=== PATIENT | female | born 1990 | race Hispanic/Latino ===

== ENCOUNTER 2017-04-23 21:00 | Inpatient (IN) | payer OTHER ==
[~2017-04-23 21:00] MED LIST: Lidocaine 2% MPF 10 ML AMP (For Epidural Use) ONE; ePHEDrine/0.9% NaCl/PF SYRINGE 50 mg/10 ml ONE
[2017-04-23] MEDS ORDERED: Misoprostol 200 MCG TAB PR PRN (22:04)
[2017-04-23] MEDS ORDERED: Acetaminophen 500 MG TAB PO PRN (22:04)
[2017-04-23] MEDS ORDERED: LR 500 ML/Oxytocin 10 units 500 ML IV SCH (22:04)
[2017-04-23] MEDS ORDERED: Carboprost 250 MCG/ML AMP IM PRN (22:04)
[2017-04-23] MEDS ORDERED: Zolpidem Tartrate 5 MG TAB PO PRN (22:04)
[2017-04-23] MEDS ORDERED: Lidocaine 1% (PF) 30 ML VIAL SC PRN (22:04)
[2017-04-23] MEDS ORDERED: Methylergonovine 0.2 MG/ML VIAL IM PRN (22:04)
[2017-04-23] MEDS ORDERED: HYDROcodone/Acetaminophen 5/325 mg Tablet PO PRN (22:04)
[2017-04-23] MEDS ORDERED: Diphenoxylate HCl/Atropine Tablet PO PRN (22:04)
[2017-04-23] MEDS ORDERED: Ondansetron HCl/PF 4 MG/2 ML Vial IVP PRN (22:04)
[2017-04-23] MEDS ORDERED: Ibuprofen 800 MG TAB PO PRN (22:04)
[2017-04-23] MEDS ORDERED: Promethazine HCl 25 MG/ML VIAL IM PRN (22:04)
[2017-04-23 22:20] VITALS: BMI 39.4
[2017-04-23] MEDS ORDERED: Penicillin G Potassium 5 MILL.UNITS in Sodium Chloride 0.9% 100 ML IVPB SCH (22:30)
[2017-04-23] MEDS: Lactated Ringer's 1,000 ML IV SCH (22:55)
[2017-04-23] MEDS: Misoprostol 100 MCG TAB VAG SCH (23:02)
[2017-04-23 23:35] LABS: Hemoglobin 14.3 g/dL (12.0-16.0); Mean Corpuscular HGB CONC 34.5 g/dL (32.0-36.0); Mean Corpuscular Volume 86.8 fl (81.0-99.0); Mean Platelet Volume 7.2 fL (7.4-10.4); Platelet Count 239 thou/uL (130-400); RBC Distribution Width 13.6 % (11.5-14.5); Red Blood Cell (RBC) Count 4.77 mill/uL (4.20-5.40); White Blood Cell (WBC) Count 8.8 thou/uL (4.8-10.8)
[2017-04-24 00:12] LABS: Syphilis Antibody Nonreactive (Nonreactive); Syphilis Antibody Index 0.04 S/CO (<1.00 Non-Reactive)
[2017-04-24 02:12] LABS: HBSAg Index 0.25 S/CO (0-0.99); Hep B Surf Ag Non-Reactive S/CO (NonReactive)
[2017-04-24 02:33] LABS: HIV (1/2) Antibody/Antigen Non-Reactive (NonReactive)
[2017-04-24] MEDS: Lactated Ringer's 1,000 ML IV SCH ×2 (03:57→07:42)
[2017-04-24] MEDS: Misoprostol 100 MCG TAB VAG SCH ×4 (03:57→15:11)
[2017-04-24] MEDS ORDERED: Bupivacaine 20 ML, Fentanyl 400 MCG in Sodium Chloride 0.9% 72 ML EPIDURAL SCH (07:00)
--- NOTE | 2017-04-24 08:14 | PDOC.LDHP ---
Labor and Delivery H&P Chief complaint: scheduled induction HPI: 26yo at 40w3d for postdate IOL. s/p 2 doses cytotec overnight, Getting 2nd dose PCN now. Current gestational age (weeks): 40 Due date: 04/21/17 Dating criteria: last menstrual period Grav: 2 Para: 1 Current complications: none Abnormal US findings: No Past Medical History: denies Current medications: pre- vitamins Previous surgical history: none Allergies/Adverse Reactions: Allergies Allergy/AdvReac Type Severity Reaction Status Date / Time No Known Drug Allergies Allergy Verified 12/21/13 22:17 Social history: none - Physical Exam Vital signs reviewed and normal: yes General: NAD Heart: RRR Lungs: CTAB Abdomen: gravid Extremeties: no edema FHT: category 1 [place] contractions every: q2min - Vaginal Exam cm dilated: 6 Effacement: 90% Station: -1 - OB Labs RH: positive Antibody Screen: negative HIV: negative RPR: negative HEPSAg: negative 1 hour GCT: negative GBS: positive Rubella: immune - Assessment L&D Assessment: medically indicated induction - Plan Plan: admit to L&D, labor augmentation if indicated, informed consent obtained, anesthesia consult for pain management -: await AROM until 2nd dose PCN in for several hours. s/p epidural, FHT Cat 1.
[2017-04-24] MEDS: Penicillin G 2.5 MILL.units 2.5 MILL.UNITS in Premix Bag 1 BAG IVPB SCH ×4 (08:35→17:06)
[2017-04-24] MEDS ORDERED: Promethazine HCl 25 MG/ML VIAL IM PRN (08:58)
[2017-04-24] MEDS ORDERED: Eucerin (Mineral Oil/Petrolatum,White) 30 gm Jar TOP PRN (08:58)
[2017-04-24] MEDS ORDERED: diphenhydrAMINE 50 MG/ML VIAL IVP PRN (08:58)
[2017-04-24] MEDS ORDERED: Acetaminophen 325 MG TAB PO PRN (08:58)
[2017-04-24] MEDS ORDERED: Lactated Ringer's 500 ML IV PRN (08:58)
[2017-04-24] MEDS ORDERED: Ondansetron HCl/PF 4 MG/2 ML Vial IVP PRN ×2 (08:58→16:04)
[2017-04-24] MEDS ORDERED: ePHEDrine/0.9% NaCl/PF SYRINGE 50 mg/10 ml SLOW IVP PRN (08:58)
[2017-04-24] MEDS ORDERED: Naloxone HCl 0.4 mg/ml Vial IVP PRN ×2 (08:58)
[2017-04-24] MEDS ORDERED: Communication Order-Pharmacy FS SCH (09:00)
[2017-04-24] MEDS ORDERED: Fentanyl 4mcg/Marcaine 0.1% Cassette 100 ML EPIDURAL SCH (09:00)
[2017-04-24] MEDS: LR / Pitocin 40 units/1000 ml 1,000 ML IV PRN ×2 (11:58→15:11)
[2017-04-24 12:17] LABS: Actual Bicarbonate (HCO3a) 23.3 mEq/L (22-26); Analyzer IN Cardio OR; Base Excess (BEa) -4.1 mEq/L (0 (+/-) 2.5)
--- NOTE | 2017-04-24 13:05 | PDOC.OPDEL ---
OB Operative/Delivery Note Delivery Dr/Surgeon: Percy Assist: n/a Pre-Delivery Diagnosis: medically indicated induction Procedure/Post Delivery Dx: spontaneous vaginal delivery Weeks gestation: 40 Anesthesia: epidural - Findings A Sex: female Weight: 7 lb 14 oz - 1 min: 8 - 5 min: 9 - Additional Findings/Plan Placenta delivered: spontaneous Repaired Obstetrical Laceration: none Estimated blood loss: 400 Compilations/Other Findings: NC x 2 reduced at perineum Post delivery plan: routine recovery
[2017-04-24] MEDS ORDERED: Benzocaine/Menthol 20-0.5% 60 ML CAN TOP PRN (16:04)
[2017-04-24] MEDS ORDERED: HYDROcodone/Acetaminophen 5/325 mg Tablet PO PRN ×2 (16:04)
[2017-04-24] MEDS ORDERED: Preparation H Ointment 28 GM TUBE PR PRN (16:04)
[2017-04-24] MEDS ORDERED: Bisacodyl 10 MG SUPP PR PRN (16:04)
[2017-04-24] MEDS ORDERED: Milk Of Magnesia 30 ML UDCUP PO PRN (16:04)
[2017-04-24] MEDS ORDERED: Adacel (T-DAP) 0.5 ML VIAL IM ONE (16:04)
[2017-04-24] MEDS ORDERED: LR / Pitocin 40 units/1000 ml 1,000 ML IV SCH (16:04)
[2017-04-24] MEDS ORDERED: Lanolin Ointment 7 GM TUBE TOP PRN (16:04)
[2017-04-24] MEDS ORDERED: diphenhydrAMINE 25 MG CAP PO PRN (16:04)
[2017-04-24] MEDS: Ferrous Sulfate 325 MG TAB PO SCH (17:06)
[2017-04-24] MEDS: Ibuprofen 800 MG TAB PO SCH (18:14)
[2017-04-24] MEDS: Docusate Calcium (SURFAK) 240 MG CAP PO SCH (22:20)
[2017-04-25] MEDS: Ibuprofen 800 MG TAB PO SCH ×2 (01:04→09:56)
[2017-04-25 08:46] VITALS: BP 119/75; TEMP 97.5
--- NOTE | 2017-04-25 08:50 | PDOC.PP ---
Post Progress Note Post Day #: 1 Subjective: Doing well, min lochia doing well, desires DC home PO intake tolerated: yes Flatus: yes Ambulation: yes Vital Signs (12 hours) Temp Pulse Resp BP 04/25/17 08:45 97.5 F L 81 20 119/75 04/25/17 06:39 97.7 F 04/25/17 05:00 97.8 F 82 16 04/25/17 01:00 97.8 F 82 16 111/56 L Weight Weight 230 lb - Physical Examination General: NAD Respiratory: clear to auscultation bilaterally Abdominal: no distention Fundus firm & at: below umb Extremities: negative homans (B) Skin: no rash Neurological: no gross focal deficits Psychiatric: A&Ox3 Result Diagrams: 04/23/17 23:07 Additional Labs: Post Labs Hep Bs Antigen Non-Reactive S/CO (NonReactive) 04/23/17 23:07 (1) Vaginal delivery Code(s): O80 - ENCOUNTER FOR FULL-TERM UNCOMPLICATED DELIVERY Status: Acute - Assessment/Plan PPD 1 doing well, no concerns, desires DC home if baby DCd this PM.
[2017-04-25] MEDS ORDERED: Prenatal Vitamin 1 TAB PO SCH (09:00)
[2017-04-25] MEDS: Ferrous Sulfate 325 MG TAB PO SCH (09:57)
[2017-04-25] MEDS: Docusate Calcium (SURFAK) 240 MG CAP PO SCH (09:59)
== END 2017-04-25 17:05 | disposition home or self-care (01) | DRG 775 ==
LOC: L&D 21:41 → 3SW 04-24 15:48
PROVIDERS: ADMIT Student in an Organized Health Care Education/Training Program; ATTEND Student in an Organized Health Care Education/Training Program
PROC: 10E0XZZ Delivery of Products of Conception, External Approach (ICD-10-PCS; principal; 2017-04-24)
PROC: 3E033VJ Introduction of Other Hormone into Peripheral Vein, Percutaneous Approach (ICD-10-PCS; 2017-04-24)
PROC: 10907ZC Drainage of Amniotic Fluid, Therapeutic from Products of Conception, Via Natural or Artificial Opening (ICD-10-PCS; 2017-04-24)
DX: O48.0 Post-term pregnancy (principal); O69.81X0 Labor and delivery complicated by cord around neck, without compression, not applicable or unspecified; O99.824 Streptococcus B carrier state complicating childbirth; Z3A.40 40 weeks gestation of pregnancy; Z37.0 Single live birth
CPT/HCPCS: 36415; 51701; 51702; 82805; 85027; 86780; 87340; 87389; J0595; J2001; J2405; J2540; J3010; J3490; J7050